=== PATIENT | male | born 1940 | race Caucasian/White ===

== ENCOUNTER 2025-07-03 18:01 | Inpatient (IN) | payer OTHER, SELFPAY ==
[2025-07-02] VITALS (12 sets, daily range): BP systolic 131–193; BP diastolic 57–117; BMI 35.5
--- NOTE | 2025-07-02 18:34 | ED.CVA ---
History of Present Illness
General
Chief Complaint: CVA/TIA Symptoms
Source: patient and spouse
Exam Limitations: none
Time Seen by Provider: 07/02/25 18:24
Onset of Stroke Symptoms
Onset of symptoms known: No
Time pt last seen normal is known: No
History of Present Illness
History of Present Illness:
See MDM
Past History
Past History
ED Past Medical History: Arrthythmia, CVA and HTN
ED Past Surgical History: Cardiac
Social History
Tobacco: Non-smoker
Alcohol: None
Phy Exam
Physical Exam
Physical Exam:
See MDM
NIH Stroke Score
Level of Consciousness: 0 - Alert
LOC questions: 0-Answers both correctly
LOC Commands: 1-Performs one correctly
Best Gaze: 1-Partial gaze palsy
Visual Mcbride: 2=Full hemianopia
Facial palsy: 0=Normal, symmetrical
Motor - Right Arm: 0=No drift 10 seconds
Motor - Left Arm: 1=Drift < 10 seconds
Motor - Right Le-No drift 5 seconds
Motor - Left Le-No drift 5 seconds
Limb Ataxia: 0-Absent
Sensation: 1-Mild loss
Best Language: 0-No aphasia
Dysarthria: 0-Normal
Extinction and Inattention: 0-No abnormality
Total Score:: 6
Course
Orders/Labs/Results
Orders:
Orders
07/02/25 18:30
Electrocardiogram (*1) Urgent
Reason for Study: TIA/Stroke
EKG- Treatment ONCE
07/02/25 18:40
Complete Blood Count/With Diff Urgent
Comprehensive Metabolic Panel Urgent
PTT Urgent
Prothrombin Time Urgent
Troponin I Urgent
07/02/25 18:42
CT Head & Neck Angio W/wo IV Urgent
Comment:
Reason For Exam: ataxia, left gaze palsy
07/02/25 20:12
Aspirin Chewable [Low Strength Aspirin] 324 mg PO NOW STA
Clopidogrel Bisulfate [Plavix] 300 mg PO NOW STA
07/02/25 20:38
Clopidogrel Bisulfate [Plavix] 300 mg .ROUTE .STK-MED ONE
Abnormal Lab Results
07/02/25
18:40
RBC 4.61 L 10^6/uL
(4.70-6.10)
MCV 97.6 H fL
(80.0-94.0)
MCH 31.7 H pg
(27.0-31.0)
MCHC 32.4 L g/dL
(33.0-37.0)
MPV 11.3 H fL
(7.4-10.4)
Absolute Monos (auto) 0.7 H 10^3/uL
(0.1-0.6)
BUN 21 H mg/dl
(9-20)
Glucose 268 H mg/dl
(70-99)
07/02/25 18:40
07/02/25 18:40
Vital Signs
Initial and Last Documented VS:
Initial Vital Signs
Temp Pulse Resp
97.9 F 77 16
07/02/25 18:26 07/02/25 18:26 07/02/25 18:26
Last Documented Vital Signs
Temp Pulse Resp BP Pulse Ox
97.9 F 70 20 176/107 91
07/02/25 18:32 07/02/25 18:32 07/02/25 18:32 07/02/25 18:32 07/02/25 19:47
MDM/Problems Addressed
Differential Diagnosis Includes:
Note:
CHIEF COMPLAINT(S)
Weakness and visual disturbance.
HISTORY OF PRESENT ILLNESS
The patient is an 84-year-old male presenting with weakness and visual disturbances. The symptoms began on a Thursday, where the patient noticed difficulty walking straight and frequent bumping into objects. He also reports a bloodshot eye since the
same period, described by an levi maker as a bruise of the eye, which is gradually clearing. The patient describes his current visual difficulties as lakes[place] to seeing through a 'slide show,' noticing quick movements with his sight. There has been
no significant headache accompanying these symptoms. He has a history of a stroke in September of the previous year but had no lasting weakness from it. The patient denies any use of blood thinners aside from aspirin. He has reported generalized
unsteadiness since his past stroke, though it improved with physical therapy. The recent exacerbation of unsteadiness has been particularly notable over the past few days.
On arrival to the emergency department, his spouse was at bedside as well. His spouse believes that symptoms occurred a few hours prior to arrival. Patient gives a conflicting story that it has occurred earlier in the morning. I had a long
discussion with patient and spouse indicating that giving TNK out of the window could result in intracranial hemorrhage. Both patient and spouse really cannot give a specific timing for the onset of symptoms. Because of the inability to
appropriately timestamp the onset of symptoms, patient is not a great TNK candidate. Both patient and spouse acknowledge and agree
ADDITIONAL HISTORY OBTAINED FROM SOURCES OTHER THAN THE PATIENT
Per EMS services, they did not provide any further intervention or noted any significant decline in the patients condition upon transportation.
CHRONIC MEDICAL CONDITIONS SIGNIFICANTLY AFFECTING CARE
The patient has a history of a stroke in the last year (September).
MEDICATIONS
Aspirin
REVIEW OF SYSTEMS
- Neurological: The patient reports weakness in the legs and unsteadiness when walking. He denies any recent headaches.
- Vision: Reports bloodshot eyes and visual disturbances, described as seeing a 'slide show.'
PHYSICAL EXAM
General: Alert, no acute distress.
Skin: Warm, dry.
Head: Normocephalic, atraumatic
Neck: Appears supple, trachea midline.
Eyes, Ears, Nose, Mouth, and Throat: Oral mucosa moist.
Cardiovascular: No signs of cyanosis. Regular rate and rhythm
Respiratory: Respirations are non-labored.
Abdomen: Non-distended
Musculoskeletal: No deformities
Neurological: Gaze palsy noted to left, left visual field deficit bilaterally. Drift noted to left arm. Sensory deficit noted to left arm
Psychiatric: Cooperative, appropriate mood and affect.
PROBLEM LIST
Acute:
- Visual disturbances
- Generalized weakness and unsteadiness
Chronic:
- History of stroke (September last year)
PLAN
- Initiate an IV line.
- Conduct a computed tomography (CT) scan of the head.
- Consider inpatient observation overnight for further evaluation.
DIFFERENTIAL DIAGNOSIS
The Differential Diagnosis includes, in no particular order and is not limited to:
1. Stroke or transient ischemic attack
2. Vestibular dysfunction
3. Ocular trauma or vitreous hemorrhage
4. Migraine with aura
5. Hypertensive retinopathy
6. Diabetic retinopathy
7. Inner ear infection
8. Brain tumor
9. Medication side effects
10. Hypotension or a cardiac event
My independent EKG interpretation is:
- Time of EKG not specified
- Rhythm: Sinus rhythm
- Heart rate: 64 beats per minute
- Notable findings: Frequent PVCs
- Kincaid: Left axis
- Bundle branch: Right bundle branch block
- ST segment: No ST elevation
- Other intervals (e.g., FL interval, QRS duration, QT interval) not specified
SUMMARY OF ENCOUNTER
The patient, an 84-year-old male with a history of stroke, presented to the emergency department with weakness and visual disturbances. During the evaluation, a CT angiogram of the head and neck was performed to assess for potential stroke-related
changes. The angiogram revealed no severe stenosis or clear evidence of thrombosis. Despite these results, due to the concerning nature of the patients symptoms which are suggestive of a potential stroke, the decision was made to restart aspirin and
clopidogrel (Plavix). Given the persistence of symptoms, the patient will be admitted to the hospital service for further workup and evaluation.
DISPOSITION
Admit
ASSESSMENT
The patient presents with visual disturbances and generalized weakness suggestive of a potential cerebrovascular event, despite unremarkable findings on the CT angiogram. Further evaluation in an inpatient setting is warranted to assess and manage
these symptoms effectively.
PLAN
- Restart aspirin and initiate clopidogrel (Plavix).
- Admit to hospital for further workup and observation.
INDEPENDENT REVIEW OF LABS AND INTERPRETATION OF TESTS
My independent CT angiogram of the head and neck shows no severe stenosis or obvious thrombosis.
MANAGEMENT OF THE PATIENTS CARE WAS DISCUSSED WITH
Case discussed with the radiologist.
MEDICATION RECONCILIATION
1. Aspirin resumed.
2. Clopidogrel (Plavix) initiated.
MEDICAL DECISION MAKING
1. Number and Complexity of Problems Addressed:
- Chronic conditions affecting care: History of stroke.
- Differential Diagnosis: Stroke or transient ischemic attack, Vestibular dysfunction, Ocular trauma or vitreous hemorrhage, Migraine with aura, Hypertensive retinopathy, Diabetic retinopathy, Inner ear infection, Brain tumor, Medication side
effects, Hypotension or a cardiac event.
2. Data:
Category 1
- My independent review of the CT angiogram shows no severe stenosis or obvious thrombosis.
Category 3
- Discussion of management with other physician, healthcare provider, other source: Radiologist
DIAGNOSIS
- Visual disturbances, unspecified (H53.9)
- Generalized weakness, unspecified (R53.1)
- History of ischemic stroke without residual deficits (Z86.73)
*Pulse Oximetry
SaO2: 98
Oxygen Mode of Delivery: Room air
Patient hypoxic: no
*Critical Care Note
Total Time (30-74mins, 75-104mins- exclusive of procedures): Not Applicable
ED Attending Note
-
Portions of this chart may have been created with voice recognition software.� Occasional wrong word or��sound alike� substitutions may have occurred due to the inherent limitations of voice recognition software.
Discharge Plan
Departure
Patient Disposition: Admit
Date of Disposition: 07/02/25
Time of Disposition: 20:17
Admit to: Telemetry
Presentation/result/management discussed w/ accepting MD/DO: Hospitalist
Discharge Problem:
Acute CVA (cerebrovascular accident)
Prescriptions:
No Action
ACTOS
30 mg PO DAILY
aspirin 325 MG tablet
325 mg PO DAILY
atenolol 100 MG tablet
100 mg PO
docusate sodium 100 MG capsule
100 mg PO TID
azelastine 137 MCG/SPRAY aerosol,spray
2 spray intranasal DAILY
fluticasone propionate 16 GRAM spray,suspension
2 spray intranasal DAILY
docosahexaenoic acid-epa 1 CAP capsule
2 cap PO DAILY
PREVACID
30 mg PO DAILY
Tylenol
2 cap PO DAILY
Vytorin 10-40 mg Tablet
1 tab PO DAILY
Referrals:
UNKNOWN - PT NOT,INTERVIEWE [Family Provider]
Interventions
Interventions:
*Risk Screen - Suicide Last Done: 07/02/25 19:00
*General Assessment Last Done: 07/02/25 19:00
*Neglect/Abuse Screening Last Done: 07/02/25 19:00
ED- Cardiac Assessment Last Done: 07/02/25 18:39
ED- Neurological Assessment Last Done: 07/02/25 18:33
ED- Pulmonary Assessment Last Done: 07/02/25 18:39
ED Swallowing Screen Last Done: 07/02/25 20:41
Discharge Date and Time
Print Language: [place]
[2025-07-02 18:48] LABS: Hematocrit 45.0 % (39.0-52.0); Hemoglobin 14.6 g/dL (13.0-18.0); Mean Corp Hgb Conc. 32.4 g/dL (33.0-37.0); Mean Corpuscular Volume 97.6 fL (80.0-94.0); Nucleated Red Blood Cells % 0 % (-); Platelet Count 177 10^3/uL (130-400); Red Cell Dist. Width 12.4 % (11.5-14.5)
[2025-07-02 18:57] LABS: INR 1.04; PT 13.9 Sec (11.4-14.6)
[2025-07-02 18:58] LABS: APTT 30.7 Sec (23.4-35.0)
[2025-07-02 19:13] LABS: ALT (SGPT) 32 U/L (0-50); AST (SGOT) 26 U/L (17-59); Albumin 4.3 g/dl (3.5-5.0); Alkaline Phosphatase 69 U/L (38-126); Blood Urea Nitrogen 21 mg/dl (9-20); Calcium 9.6 mg/dl (8.4-10.2); Carbon Dioxide 28 mmol/L (22-30); Chloride 106 mmol/L (98-107); Estimated Creatinine Clearance 64 ml/min; Glucose 268 mg/dl (70-99); Potassium 4.4 mmol/L (3.5-5.1); Sodium 139 mmol/L (135-145); Total Protein 7.0 g/dl (6.3-8.2); eGFR > 60.00
[2025-07-02 19:15] LABS: Troponin I < 0.012 ng/ml
[2025-07-02] MEDS: LOW STRENGTH ASPIRIN 324 MG PO (20:42)
[2025-07-02] MEDS: PLAVIX 300 MG PO (20:42)
--- NOTE | 2025-07-02 21:27 | HPS.HSE ---
Family Physician
-
Family Physician: Jeremiah Lee
Chief Complaint
-
left sided weakness
History of Present Illness
84-year-old male past medical history of prior CVA last year, CAD, diabetes, hypercholesteremia, GERD, hypertension, BPH, arthritis, presenting with sudden onset of disequilibrium and bumping into things that started today. Patient felt unlike
himself. Patient himself vague about when the symptoms started however states that he she last saw him normal at around 4 to 4:30 PM today. Patient had a headache but denied any blurry vision. He states that he had kaleidoscope like images
and visual field at the time. He denies any numbness or tingling or weakness. No slurred speech or difficulty speaking or confusion.
3 days ago he noticed that his left eye was red. He denies any eye pain or blurry vision. He called his geochemist who told him that this was subconjunctival hemorrhage and nothing to be worried about.
Patient had a stroke 1 year ago diagnosed at [facility] and he had similar symptoms of disequilibrium and left-sided weakness. He had neglect at that time and some residual vision issues and left-sided neglect however his symptoms today are
new.
He does not smoke. He drinks alcohol occasionally.
Medical History
Past Medical History
Past Medical History: Reports Other (prior CVA last year, CAD, diabetes, hypercholesteremia, GERD, hypertension, BPH, arthritis,)
Past Surgical History: Reports None
Social History
Tobacco: Non-smoker
Alcohol: Occasional
Drug: None
Family History
Family History: Not pertinent
Allergies / Home Medications
Allergies reflects when Allergies were last updated in [facility].
Home Medications with original date entered in [facility]
Allergy/Medication List:
Allergies
Allergy/AdvReac Type Severity Reaction Status Date / Time
HIEU Inhibitors (Hieu Allergy cough Verified 07/02/25 18:30
Inhibitors)
metformin Allergy gas Verified 07/02/25 18:30
Home Medications
ACTOS 30 mg PO DAILY 12/20/10
PREVACID 30 mg PO DAILY 12/20/10
Tylenol 2 cap PO DAILY 12/20/10
Vytorin 10-40 mg Tablet 1 tab PO DAILY 12/20/10
aspirin 325 mg tablet 325 mg PO DAILY 12/20/10
atenolol 100 mg tablet 100 mg PO 12/20/10
azelastine 137 mcg (0.1 %) nasal spray 2 spray intranasal DAILY 12/20/10
docosahexaenoic acid (dha)-epa 120 mg-180 mg capsule 2 cap PO DAILY 12/20/10
docusate sodium 100 mg capsule 100 mg PO TID 12/20/10
fluticasone propionate 50 mcg/actuation nasal spray,suspension 2 spray intranasal DAILY 12/20/10
Review of Systems
-
Constitutional: Reports No Symptoms
EENT: Reports No Symptoms
Respiratory: Reports No Symptoms
Cardiac: Reports No Symptoms
Abdomen/GI: Reports No Symptoms
: Reports No Symptoms
Musculoskeletal: Reports No Symptoms
Skin: Reports No Symptoms
Neurological: Reports No Symptoms
Endocrine: Reports No Symptoms
Hematologic/Lymphatic: Reports No Symptoms
Psych: Reports No Symptoms
Physical Exam
Vital Signs
Vital Signs
Temp Pulse Resp BP Pulse Ox
97.9 F 70 20 176/107 91
07/02/25 18:32 07/02/25 18:32 07/02/25 18:32 07/02/25 18:32 07/02/25 19:47
Physical Exam
General: Well Developed, Well Nourished and No Apparent Distress
HEENT: NormoCephalic, Moist mucous membranes and Atraumatic
Respiratory: Clear
Cardiac: S1/S2 and Regular Rhythm; No Murmur or Rub
GI: Soft, Non Tender, Non Distended and Normal Bowel Sounds; No Organomegaly
Rectal: Deferred by Provider
Musculoskeletal: No Clubbing, No Cyanosis and No Edema
Skin: No Rash
Neuro: Nonfocal/grossly intact and Other (Left sided drift upper and lower extremity, left sided gaze palsy, numbness of left side, left gaze palsy )
Laboratory Results
-
07/02/25 18:40
07/02/25 18:40
Laboratory Results
PT 13.9 Sec (11.4-14.6) 07/02/25 18:40
INR 1.04 07/02/25 18:40
APTT 30.7 Sec (23.4-35.0) 07/02/25 18:40
Total Bilirubin 0.5 mg/dl (0.2-1.3) 07/02/25 18:40
AST 26 U/L (17-59) 07/02/25 18:40
ALT 32 U/L (0-50) 07/02/25 18:40
Alkaline Phosphatase 69 U/L (38-126) 07/02/25 18:40
Troponin I < 0.012 ng/ml 07/02/25 18:40
Data Reviewed
-
Lab Data: Labs Reviewed by me
Old Records: Reviewed
Impression/Plan
-
IMPRESSION:
PLAN:
# Likely CVA
# Prior CVA 1 year ago
-NIH of 6 noted in the emergency room, patient with significant left-sided weakness and numbness, left-sided gaze preference at this time
- CTA head and neck shows no acute intracranial process, no hemorrhage, encephalomalacia within the right temporoparietal region, small hypodensity within the superior left parietal lobe favored to represent chronic infarction,
-Aspirin and Plavix were given by ER
-Check CT head with perfusion given profound extent of symptoms
- Check MRI brain
- Check A1c and lipid panel
- Neurology consulted
# Subconjunctival hemorrhage of left eye
- Outpatient follow-up with ophthalmology
CAD
Essential hypertension
-continue atenolol
Type 2 diabetes
Hypercholesteremia
GERD
BPH
Arthritis
Full code
DVT prophylaxis SCDs
Regular diet
[2025-07-02] MEDS: ZOFRAN 4 MG IV (21:52)
--- NOTE | 2025-07-02 23:48 | W.PN.UPDATE ---
Update Note
Progress Note Update
Neurology looked at the CT perfusion scan and determined that the penumbra was not large enough to warrant benefit with TNK versus risk of bleeding. Permissive hypertension. Aspirin and Plavix to be continued.
[2025-07-03] VITALS (10 sets, daily range): BP systolic 112–160; BP diastolic 59–70; PULSE 81–82; O2SAT 94–95; BMI 31.9
--- NOTE | 2025-07-03 | TRANSFER ---
Pt arrived from ED by stretcher, was a pullover. An NIH was performed. VSS. Callbell within reach.
[2025-07-03 00:38] LABS: Glucose - Point of Care 271 mg/dl (70-99)
[2025-07-03] MEDS: TYLENOL 1000 MG PO (04:18)
--- NOTE | 2025-07-03 07:10 | W.PN.HOSP.TC ---
Today's Communication/Plan
-
See plan
Assessment / Plan
Assessment / Plan
Physical Exam
General: Well Developed, Well Nourished and No Apparent Distress
HEENT: NormoCephalic, Moist mucous membranes and Atraumatic
Respiratory: Clear
Cardiac: S1/S2 and Regular Rhythm; No Murmur or Rub
GI: Soft, Non Tender, Non Distended and Normal Bowel Sounds; No Organomegaly
Rectal: Deferred by Provider
Musculoskeletal: No Clubbing, No Cyanosis and No Edema
Skin: No Rash
Neuro: Nonfocal/grossly intact and Other (Left sided drift upper and lower extremity, left sided gaze palsy, numbness of left side, left gaze palsy )
Assessment/Plan
84-year-old male past medical history of prior CVA last year, CAD, diabetes, hypercholesteremia, GERD, hypertension, BPH, arthritis, presenting with sudden onset of disequilibrium and bumping into things that started today. Patient felt unlike
himself. Patient himself vague about when the symptoms started however states that he she last saw him normal at around 4 to 4:30 PM today. Patient had a headache but denied any blurry vision. He states that he had kaleidoscope like images
and visual field at the time. He denies any numbness or tingling or weakness. No slurred speech or difficulty speaking or confusion.
3 days ago he noticed that his left eye was red. He denies any eye pain or blurry vision. He called his credit collections clerk who told him that this was subconjunctival hemorrhage and nothing to be worried about.
Patient had a stroke 1 year ago diagnosed at [facility] and he had similar symptoms of disequilibrium and left-sided weakness. He had neglect at that time and some residual vision issues and left-sided neglect however his symptoms today are
new.
He does not smoke. He drinks alcohol occasionally.
# Likely CVA
# Prior CVA 1 year ago
- NIH of 6 noted in the emergency room, patient with significant left-sided weakness and numbness, left-sided gaze preference at this time
- CTA head and neck shows no acute intracranial process, no hemorrhage, encephalomalacia within the right temporoparietal region, small hypodensity within the superior left parietal lobe favored to represent chronic infarction,
- Aspirin and Plavix
- Statin
- CTA Head and Neck & CT Brain: no acute process, encephalomalacia within the right temporoparietal region, small hypodensity within the superior left parietal lobe favored to represent a chronic infarction, no significant arterial
stenosis, no aneurysm, mild atherosclerotic plaque of the carotid bifurcations with resultant less than 30% stenosis by NASA criteria.
- HbA1c 7.6%
- Lipid panel noted
- Neurology consulted
- I spoke on 07/03/25 with neurology who said patient has a reasonably large territory stroke, appears embolic, no need for MRI Brain
- Consulted cardiology for interrogation of patient's implantable loop recorder
- Monitor telemetry for A-Fib
- Echo
#Subconjunctival hemorrhage of left eye
- Outpatient follow-up with ophthalmology
#Incidentally noted 3 mm solid nodule within the posterior right upper lobe which is nonspecific. A follow-up CT chest in 12 months may be considered. The patient is considered high risk.
-On CT Imaging
#CAD with history of CABG
-Continue Aspirin and Statin
#Essential hypertension
-continue atenolol
#Type 2 Diabetes Mellitus
-Diabetic Duet
-Continue SGLT2i
#Hypercholesteremia
-Continue statin
#GERD
#BPH
#Arthritis
Code Status: Full code
DVT prophylaxis: SCDs. Lovenox.
Anticipated Discharge: 24 - 48 hours
Subjective/Interval History
-
Date of Service: July 03, 2025
Patient was seen and examined. Both patient's family and patient himself reported that his presenting symptoms have resolved.
Objective Data
-
Labs:
Laboratory Results
07/02/25 07/03/25
18:40 06:00
WBC Pending
Hgb Pending
Hct Pending
Plt Count Pending
Sodium 139 Pending
Potassium 4.4 Pending
Chloride 106 Pending
Carbon Dioxide 28 Pending
BUN 21 H Pending
Creatinine 1.0 Pending
Glucose 268 H Pending
Calcium 9.6 Pending
Total Bilirubin 0.5 Pending
AST 26 Pending
ALT 32 Pending
Alkaline Phosphatase 69 Pending
Vital Signs:
Vital Signs
Temp Pulse Resp BP Pulse Ox
98.6 F 82 20 140/70 97
07/03/25 03:59 07/03/25 03:59 07/03/25 03:59 07/03/25 03:59 07/03/25 03:59
I&O
07/02/25 07/03/25 07/04/25
06:59 06:59 06:59
Intake Total 480 / 480
Output Total 675 / 675
Balance -195 / -195
[2025-07-03 08:00] LABS: Glucose - Point of Care 151 mg/dl (70-99)
[2025-07-03 08:16] LABS: Hematocrit 42.4 % (39.0-52.0); Hemoglobin 13.9 g/dL (13.0-18.0); Mean Corp Hgb Conc. 32.8 g/dL (33.0-37.0); Mean Corpuscular Volume 97.7 fL (80.0-94.0); Nucleated Red Blood Cells % 0 % (-); Platelet Count 172 10^3/uL (130-400); Red Cell Dist. Width 12.3 % (11.5-14.5)
[2025-07-03 08:41] LABS: ALT (SGPT) 32 U/L (0-50); AST (SGOT) 26 U/L (17-59); Albumin 4.0 g/dl (3.5-5.0); Alkaline Phosphatase 69 U/L (38-126); Blood Urea Nitrogen 22 mg/dl (9-20); Calcium 9.3 mg/dl (8.4-10.2); Carbon Dioxide 27 mmol/L (22-30); Chloride 107 mmol/L (98-107); Estimated Creatinine Clearance 67 ml/min; Glucose 184 mg/dl (70-99); HDL Cholesterol 70 mg/dl; LDL Cholesterol, Calculated 66 mg/dl; Potassium 4.4 mmol/L (3.5-5.1); Sodium 140 mmol/L (135-145); Total Protein 6.6 g/dl (6.3-8.2); Very Low Density Lipoprotein 12 mg/dl (0-30); eGFR > 60.00
[2025-07-03] MEDS: NOVOLOG FLEXPEN-LOW RESISTANCE 1 UNITS SC ×2 (08:55→17:58)
[2025-07-03] MEDS: LOW STRENGTH ASPIRIN 81 MG PO (08:55)
[2025-07-03] MEDS: PLAVIX 75 MG PO (08:55)
[2025-07-03 09:03] LABS: Glycohemoglobin (HgbA1c) 7.6 % (4.0-5.6)
--- NOTE | 2025-07-03 11:38 | CON.CAR ---
Addendum entered and electronically signed by Bautista Logan MD 07/03/25 18:50:
I saw and evaluated the patient, and I provided the substantive portion of the medical decision making.
I reviewed and agree with the note by TAVO Almaguer and it accurately reflects our care.
I personally performed the medical decision making of the this encounter and my assessment and plan is below:
Loop interrogated: Biotronik => NO AFIB.
No indication for Eliquis from a cardiac rhythm perspective.
From a general stroke prevention I reviewed that more aggressive blood pressure control after the acute phase of stroke can be beneficial and it may be yuen and after 21 days of DAPT maybe use Plavix over ASA. Goal LDL of less than 55 is
appropriate.
Original Note:
Consultation
Consultation Request
Date/Time Consultation Requested: 07/03/25 1059
Date/Time Consultation Performed: 07/03/25 1130
Requesting Provider: Dr. Posadas
Performing Provider: Sharyn VO for Dr. Logan
Reason for Consultation: Stroke, has ILR
Medical History
-
Chief Complaint: visual disturbance/disequilibrium
History of Present Illness:
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
previous stroke yesterday, which included about 5 hours of visual disturbance and disequilibrium. CT perfusion showed cerebral blood flow decrease and Tmax prolongation are in the region of encephalomalacia involving the right posterior temporal,
occipital, and inferior parietal lobes. Patient has an implantable loop recorder and we are consulted for assessment of this. He feels back to normal at the time of my assessment. and daughter at bedside.
Past Medical History
Past Medical History: CAD, CVA, HTN, Hypercholesterolemia, NIDDM, Valvular Disease and Other (as above)
Social History
Tobacco: Former Smoker (quit 45-50 years ago)
Personal:
Living: With Family
Family History
Family History: Reviewed & Not Pertinent
Allergies / Home Medications
Allergy/AdvReac Type Severity Reaction Status Date / Time
HIEU Inhibitors (Hieu Allergy cough Verified 07/02/25 18:30
Inhibitors)
metformin Allergy gas Verified 07/02/25 18:30
med rec not yet done, but cardiac medications include:
atorvastatin 80 mg PO daily
losartan 50 mg daily
metoprolol 25 mg PO BID
aspirin 81 mg PO daily
Review of Systems
-
History Source: Patient
All other systems: Negative unless noted
Neurological: Other (visual disturbance/disequilibrium)
Physical Exam
Vital Signs
Temp Pulse Resp BP Pulse Ox
99.6 F 80 18 123/63 94
07/03/25 07:00 07/03/25 07:00 07/03/25 07:00 07/03/25 07:00 07/03/25 07:00
Lab Results
07/03/25 07:25
07/03/25 07:25
Troponin I < 0.012 ng/ml 07/02/25 18:40
Physical Exam
General: Well Developed, Well Nourished and No Apparent Distress
HEENT: Normocephalic and Anicteric
Respiratory: Clear and Non Labored Respirations
Cardiac: Regular Rhythm and Murmur (II/ systolic murmur)
Musculoskeletal: No Edema
Skin: Warm and Dry
Neuro: AO x 3
Psych: Calm
Impression / Plan
-
Stroke:
-this diagnosis is threat to bodily function
-neurology on the case
-patient is on ASA, now Plavix- I will resume statin as it is not ordered
-he has an implantable loop recorder. interrogate device- I have contacted [employer] for interrogation- they will send rep out. Patient tells me that no AFIB has been seen so far on device interrogation, and his non destructive evaluation manager has not felt he needed
OAC. He reports had brief AFIB after his AVR/CABG which was about 10 years ago, but that is his only known AFIB history. Will assess for AFIB on monitor. Tele shows no AFIB so far. No objection to OAC if neuro recommends.
-obtain echo
CAD with hx CABG:
-continue ASA
-resume statin and BB from home meds
Hx Bio AVR:
-on ASA
HTN:
-on ARB and BB as OP
-monitor BP's
DM:
-management per primary
Data Reviewed
-
EKG: Tracing Personally Visualized and interpreted (SR with PVC's, RBBB)
CT Scan: Report Reviewed by me (Brain CT -No acute intracranial process. Specifically, no evidence of acute hemorrhage. Encephalomalacia within the right temporoparietal region. There is a small hypodensity within the superior left parietal lobe
favored to represent a chronic infarction.)
Medical Tests (Nuc Med, Echo etc): Other (echo ordered)
Labs: Labs Reviewed by me
[2025-07-03 11:51] LABS: Glucose - Point of Care 215 mg/dl (70-99)
--- NOTE | 2025-07-03 12:36 | CM ---
Patient seen at bedside with & daughter Susanne
IA completed
Per hospitalist - LOC to inpatient-IMM explained & signed. in chart
CM consult completed. Advanced Directives information given to patient/
Lives in 2 story home, 2 KAREN, 1st floor bedroom/bathroom
PLOF: independent with cane
DME: Cane, walker, shower chair
Daughter is a PT & works for [employer]
Patient had [facility] in past, had been at [facility] in past in [place]
PT/OT rec Acute Rehab
Daughter would like to wait to place referral at this time, CM to follow up
PCP: Jeremiah Lee
Pharmacy: [facility], [address], [place]
PLAN: PT rec acute rehab, CM to follow up with referral to be entered
[2025-07-03] MEDS: NOVOLOG FLEXPEN-LOW RESISTANCE 2 UNITS SC (12:55)
[2025-07-03] MEDS: PEPCID 20 MG PO (13:40)
[2025-07-03] MEDS: TYLENOL 650 MG PO ×2 (15:38→20:57)
[2025-07-03 16:45] LABS: Glucose - Point of Care 185 mg/dl (70-99)
[2025-07-03] MEDS: LOVENOX 40 MG SC (18:29)
--- NOTE | 2025-07-03 19:49 | CON.NEURO ---
Neuro Assessment/Plan
Assessment
head CT imgs rev'd, right temporoparietal encephalomalacia
CTA no LVO
CT perfusion core 14 cc, penumbra 6 cc near his prior stroke as read by prashanth RUDD, and my review of imaging agrees with this assessment.
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 began with simple visual hallucinations then profound left sided weakness and neglect. the gaze deviation to the left (away from lesion) can only be seen with a
seizure, because a stroke or post ictal would cause gaze deviation TOWARD the lesion.
as I think this is a seizure, I'm not convinced that the penumbra was ever real.
symptoms were profound and lasted many hours, and I believe he is at >50% risk for further seizures
Plan
load Keppra 2000
start Keppra 500 BID
check EEG
Consultation
Order
Date of Consultation: 07/03/25
Requesting Provider: Viky
Reason for Consult: Stroke
Subjective/Objective
Subjective Data
Date of Service: July 03, 2025
from h&p:
84-year-old male past medical history of prior CVA last year, CAD, diabetes, hypercholesteremia, GERD, hypertension, BPH, arthritis, presenting with sudden onset of disequilibrium and bumping into things that started today. Patient felt unlike
himself. Patient himself vague about when the symptoms started however states that he she last saw him normal at around 4 to 4:30 PM today. Patient had a headache but denied any blurry vision. He states that he had kaleidoscope like images
and visual field at the time. He denies any numbness or tingling or weakness. No slurred speech or difficulty speaking or confusion.
3 days ago he noticed that his left eye was red. He denies any eye pain or blurry vision. He called his retort firer who told him that this was subconjunctival hemorrhage and nothing to be worried about.
Patient had a stroke 1 year ago diagnosed at [facility] and he had similar symptoms of disequilibrium and left-sided weakness. He had neglect at that time and some residual vision issues and left-sided neglect however his symptoms today are
new.
He does not smoke. He drinks alcohol occasionally.
I spoke to Dr Salmon over TT last night, with dense left hemiparesis, left sided neglect, and left gaze deviation, my concern was seizure because gaze deviation away from the side of the lesion, however he was very concerned for stroke. we decided
to obtain a CT perfusion scan, which showed a a 14 cc core infarct and 6 cc penumbra near his prior right temporoparietal stroke. I recommended no TNK because penumbra:core <1.8
I spoke to patient and family this morning and he is now back to baseline, and he is denying that he had left sided weakness yesterday (because of the neglect)
Objective Data
Vital Signs
Temp Pulse Resp BP Pulse Ox
36.9 C 65 18 139/66 97
07/03/25 15:00 07/03/25 15:00 07/03/25 15:00 07/03/25 15:00 07/03/25 15:00
Lab Results
07/03/25 07:25
07/03/25 07:25
PT 13.9 Sec (11.4-14.6) 07/02/25 18:40
INR 1.04 07/02/25 18:40
APTT 30.7 Sec (23.4-35.0) 07/02/25 18:40
Sodium 140 mmol/L (135-145) 07/03/25 07:25
Potassium 4.4 mmol/L (3.5-5.1) 07/03/25 07:25
BUN 22 mg/dl (9-20) H 07/03/25 07:25
Glucose 184 mg/dl (70-99) H 07/03/25 07:25
Calcium 9.3 mg/dl (8.4-10.2) 07/03/25 07:25
LDL Cholesterol, Calc 66 mg/dl 07/03/25 07:25
Patient Allergies
HIEU Inhibitors (Hieu Inhibitors) Allergy (Verified 07/02/25 18:30)
cough
metformin Allergy (Verified 07/02/25 18:30)
gas
Physical Exam
-
AAOx3 speech clear, language intact
L superior homo quadrantanopsia
left nasolabial flattening
full strength b/l UE/LE
no neglect
Medications
-
Active Medications
Generic Name Dose Route Start Last Admin
Trade Name Freq PRN Reason Stop Dose Admin
Acetaminophen 650 mg 07/03/25 04:00 07/03/25 15:38
Acetaminophen 325 Mg Tablet PO 07/31/25 03:59 650 mg
Q4HPRN PRN Administration
mild pain/VALENCIA/temp>100.5
Aspirin 81 mg 07/03/25 08:00 07/03/25 08:55
Aspirin 81 Mg Chewable Tablet PO 07/31/25 07:59 81 mg
DAILY ROXANN Administration
Atorvastatin Calcium 80 mg 07/03/25 22:00
Atorvastatin (Lipitor) 80 Mg Tablet PO 07/31/25 21:59
HS ROXANN
Clopidogrel Bisulfate 75 mg 07/03/25 08:00 07/03/25 08:55
Clopidogrel 75 Mg Tablet PO 07/31/25 07:59 75 mg
DAILY ROXANN Administration
Dapagliflozin 10 mg 07/04/25 08:00
Dapagliflozin (Farxiga) 10 Mg Tablet PO 08/01/25 07:59
DAILY ROXANN
Dextrose 12.5 grams 07/02/25 23:50
Dextrose 50% (0.5 Grams/Ml) 50 Ml Syringe IV 07/30/25 23:49
[id number] PRN
hypoglycemia
Protocol
Docusate Sodium 100 mg 07/04/25 08:00
Docusate Sodium 100 Mg Capsule PO 08/01/25 07:59
DAILY ROXANN
Docusate Sodium 200 mg 07/03/25 22:00
Docusate Sodium 100 Mg Capsule PO 07/31/25 21:59
HS ROXANN
Enoxaparin Sodium 40 mg 07/03/25 19:00 07/03/25 18:29
Enoxaparin Sodium 40 Mg/0.4 Ml Syringe SC 07/31/25 18:59 40 mg
QPM ROXANN Administration
Finasteride 5 mg 07/03/25 22:00
Finasteride 5 Mg Tablet PO 07/31/25 21:59
HS ROXANN
Glucagon 1 mg 07/02/25 23:50
Glucagon 1 Mg Vial IM 07/30/25 23:49
PRN PRN
hypoglycemia
Protocol
Insulin Aspart 0 units 07/03/25 07:30 07/03/25 17:58
Insulin Aspart Low Resistance 300 Units/3 Ml Pen.Injctr SC 07/31/25 07:29 1 units
AC ROXANN Administration
Protocol
Metoprolol Tartrate 25 mg 07/03/25 20:00
Metoprolol 25 Mg Regular Release Tablet PO 07/31/25 19:59
BID ROXANN
Multivitamins Therapeutic 1 tablet 07/04/25 08:00
Multivitamin Tablet PO 08/01/25 07:59
DAILY ROXANN
Pantoprazole Sodium 20 mg 07/04/25 08:00
Pantoprazole 20 Mg Delayed Release Tablet PO 08/01/25 07:59
DAILY ROXANN
Home Medications
�Medication �Instructions �Recorded
docusate sodium 100 mg capsule 100 mg PO DAILY 12/20/10
lansoprazole 15 mg capsule,delayed 15 mg PO DAILY 12/20/10
release
aspirin 81 mg tablet,delayed 81 mg PO DAILY 07/03/25
release
atorvastatin 80 mg tablet (Lipitor) 80 mg PO HS 07/03/25
docusate sodium 100 mg capsule 200 mg PO HS 07/03/25
(Colace)
empagliflozin 10 mg tablet 10 mg PO DAILY 07/03/25
(Jardiance)
finasteride 5 mg tablet 5 mg PO HS 07/03/25
fluticasone propionate 50 1 spray intranasal HS 07/03/25
mcg/actuation nasal
spray,suspension
losartan 50 mg tablet 50 mg PO DAILY 07/03/25
metoprolol tartrate 50 mg tablet 25 mg PO BID 07/03/25
sitagliptin phosphate 100 mg 100 mg PO DAILY 07/03/25
tablet (Januvia)
therapeutic multivitamin 1 tab PO DAILY 07/03/25
[2025-07-03] MEDS: LOPRESSOR 25 MG PO (20:31)
[2025-07-03 21:26] LABS: Glucose - Point of Care 200 mg/dl (70-99)
[2025-07-03] MEDS: KEPPRA 2000 MG IV (22:21)
[2025-07-03] MEDS: PROSCAR 5 MG PO (22:22)
[2025-07-03] MEDS: COLACE 200 MG PO (22:22)
[2025-07-03] MEDS: LIPITOR 80 MG PO (22:22)
--- NOTE | 2025-07-04 07:19 | W.PN.HOSP.TC ---
Addendum entered and electronically signed by Ramon Posadas MD 07/06/25 20:07:
Possible Acute Delirium due to Keppra
Original Note:
Today's Communication/Plan
-
Discharge today if okay results are acceptable
Assessment / Plan
Assessment / Plan
Physical Exam
General: Well Developed, Well Nourished and No Apparent Distress
HEENT: NormoCephalic, Moist mucous membranes and Atraumatic
Respiratory: Clear
Cardiac: S1/S2 and Regular Rhythm; No Murmur or Rub
GI: Soft, Non Tender, Non Distended and Normal Bowel Sounds; No Organomegaly
Rectal: Deferred by Provider
Musculoskeletal: No Clubbing, No Cyanosis and No Edema
Skin: No Rash
Neuro: AAOx3. Speech clear. Cranial Nerves 2 through 12 okay except visual cummings, mild left nasolabial flattening, 5/5 strength in bilateral upper and lower extremities.
Assessment/Plan
84-year-old male past medical history of prior CVA last year, CAD, diabetes, hypercholesteremia, GERD, hypertension, BPH, arthritis, presenting with sudden onset of disequilibrium and bumping into things that started today. Patient felt unlike
himself. Patient himself vague about when the symptoms started however states that he she last saw him normal at around 4 to 4:30 PM today. Patient had a headache but denied any blurry vision. He states that he had kaleidoscope like images
and visual field at the time. He denies any numbness or tingling or weakness. No slurred speech or difficulty speaking or confusion. 3 days prior to presentation, he noticed that his left eye was red. He denies any eye pain or blurry vision. He
called his weld inspector who told him that this was subconjunctival hemorrhage and nothing to be worried about. Patient had a stroke 1 year ago diagnosed at [facility] and he had similar symptoms of disequilibrium and left-sided weakness.
He had neglect at that time and some residual vision issues and left-sided neglect however his symptoms today are new. Patient does not smoke. He drinks alcohol occasionally.
# Simple Partial Seizures
# Prior CVA 1 year ago
- NIH of 6 noted in the emergency room, patient with significant left-sided weakness and numbness, left-sided gaze preference at this time
- CTA head and neck shows no acute intracranial process, no hemorrhage, encephalomalacia within the right temporoparietal region, small hypodensity within the superior left parietal lobe favored to represent chronic infarction,
- Aspirin. No indication for Plavix (I confirmed this via [employer] communication today, with ammonia refrigeration worker Dr. Martin and neurologist Dr. Hahn)
- Statin
- CTA Head and Neck & CT Brain: no acute process, encephalomalacia within the right temporoparietal region, small hypodensity within the superior left parietal lobe favored to represent a chronic infarction, no significant arterial
stenosis, no aneurysm, mild atherosclerotic plaque of the carotid bifurcations with resultant less than 30% stenosis by NASA criteria.
- HbA1c 7.6%
- Lipid panel noted
- Neurology consulted
- Discussed with neurology who mentioned that patient's findings suggest more of seizure than stroke, patient sundowned overnight 07/03/25 to 07/04/25 after Keppra was started, better to do Zonisamide 300 mg daily on
discharge in case the sundowning was from Keppra
- Patient had a very bizarre episode when trying to eat lunch around 2 PM on 07/04/25, according to the daughter, patient 'forgot' how to eat the sandwich and couldn't see the sandwich -- the episode initially lasted about a
minute, and slowly got better over a period of 4-5 minutes -- I discussed this with neurology who said that this episode was a seizure (but not TIA) since symptoms did not last long enough -- could also be ideomotor apraxia --
recommendation to give 600 mg Zonisamide today, followed by 300 mg daily starting on 07/05/25 as per my communication with Dr. Hahn today
- Consulted cardiology for interrogation of patient's implantable loop recorder: no A-Fib on interrogation
- Monitor telemetry for A-Fib
- Echo needs to be checked as per Dr. Martin, before patient leaves -- echo result pending
- I discussed patient's case with nurse case manager, who also spoke to patient's daughters, and neurology, case management and patient's daughters are in agreement with patient being discharged home with
[facility] at [facility]. Neurologist also confirmed that patient does not have a qualifying diagnosis for inpatient rehab placement.
- Follow-up with neurology AGRICULTURAL EQUIPMENT SALESPERSON outpatient
#Subconjunctival hemorrhage of left eye
- Outpatient follow-up with ophthalmology
#Incidentally noted 3 mm solid nodule within the posterior right upper lobe which is nonspecific. A follow-up CT chest in 12 months may be considered. The patient is considered high risk.
-On CT Imaging
#CAD with history of CABG
-Continue Aspirin and Statin
#Essential hypertension
-continue atenolol
#Type 2 Diabetes Mellitus
-Diabetic Duet
-Continue SGLT2i
-Continue Sitagliptin on discharge
#Hypercholesteremia
-Continue statin
#GERD
#BPH
#Arthritis
Code Status: Full code
DVT prophylaxis: SCDs. Lovenox.
More than 30 minutes spent in discharge including
Final examination of the patient
Summarizing hospital stay
Instructions for continuing care to all relevant caregivers
Preparation of discharge records, prescriptions, and referral forms
Total time spent (in minutes): 37
Anticipated Discharge: Today
Subjective/Interval History
-
Date of Service: July 04, 2025
Patient was seen and examined. Overnight he was very restless, determined to have been , the restlessness resolved this morning.
Objective Data
-
Labs:
Laboratory Results
07/04/25
06:00
WBC Pending
Hgb Pending
Hct Pending
Plt Count Pending
Sodium Pending
Potassium Pending
Chloride Pending
Carbon Dioxide Pending
BUN Pending
Creatinine Pending
Glucose Pending
Calcium Pending
Total Bilirubin Pending
AST Pending
ALT Pending
Alkaline Phosphatase Pending
Vital Signs:
Vital Signs
Temp Pulse Resp BP Pulse Ox
98.2 F 63 18 131/63 94
07/03/25 23:00 07/03/25 23:00 07/03/25 23:00 07/03/25 23:00 07/03/25 23:00
I&O
07/03/25 07/04/25 07/05/25
06:59 06:59 06:59
Intake Total 480 / 480 740 / 740
Output Total 675 / 675 300 / 300
Balance -195 / -195 440 / 440
[2025-07-04 07:35] LABS: Glucose - Point of Care 152 mg/dl (70-99)
[2025-07-04] MEDS: KEPPRA 500 MG PO (07:54)
[2025-07-04] MEDS: FARXIGA 10 MG PO (07:55)
[2025-07-04] MEDS: LOPRESSOR 25 MG PO (07:55)
[2025-07-04] MEDS: COLACE 100 MG PO (07:55)
[2025-07-04] MEDS: PLAVIX 75 MG PO (07:56)
[2025-07-04] MEDS: PROTONIX 20 MG PO (07:56)
[2025-07-04] MEDS: LOW STRENGTH ASPIRIN 81 MG PO (07:56)
[2025-07-04] MEDS: THERAGRAN 1 TABLET PO (07:56)
[2025-07-04 08:09] VITALS: BP 116/74
--- NOTE | 2025-07-04 08:09 | W.PN.CD ---
Today's Communication / Plan
-
- No atrial fibrillation on loop recorder interrogation.
- Continue recommendations as per Neurology; Continue aspirin/Plavix.
- Echocardiogram ordered for today; can follow-up with primary Meteorological Observer.
- Cardiology will remain available on an as-needed basis.
Impression / Plan
-
Stroke:
- No atrial fibrillation on loop recorder interrogation.
- Continue recommendations as per Neurology; Continue aspirin/Plavix.
- Echocardiogram ordered for today; can follow-up with primary Meteorological Observer.
CAD with hx CABG:
- Denies any anginal symptoms; stable. Continue aspirin, atorvastatin, metoprolol tartrate.
Hx Bio AVR:
- on ASA
- Will obtain echocardiogram to establish baseline cardiac function.
HTN:
- Controlled.
- Continue current dose of metoprolol tartrate.
DM:
-management per primary
Physical Exam
Vital Signs/Labs
Vital Signs
Temp Pulse Resp BP Pulse Ox
98.2 F 64 18 116/74 94
07/03/25 23:00 07/04/25 07:55 07/03/25 23:00 07/04/25 07:55 07/03/25 23:00
07/03/25 07/04/25 07/05/25
06:59 06:59 06:59
Actual Weight 95.254 kg
PT 13.9 Sec (11.4-14.6) 07/02/25 18:40
INR 1.04 07/02/25 18:40
APTT 30.7 Sec (23.4-35.0) 07/02/25 18:40
Triglycerides 60 mg/dl (10-149) 07/03/25 07:25
LDL Cholesterol, Calc 66 mg/dl 07/03/25 07:25
VLDL Cholesterol, Calc 12 mg/dl (0-30) 07/03/25 07:25
HDL Cholesterol 70 mg/dl 07/03/25 07:25
LAB Results
07/02/25
18:40
Troponin I < 0.012
Physical Exam
Constitutional: No acute distress and Comfortable
EENT: Anicteric
Cardiovascular: Rhythm & rate is regular, Pedal edema is absent, Systolic murmur present (Soft 2/6) and S1S2 is normal
Respiratory: Respiratory effort normal and Lungs clear to auscul.
GI: Soft
Neuro/Psych: Alert
Other: Skin (Warm, dry, intact)
Data Reviewed
-
Date of Service: July 04, 2025
EKG: Tracing Personally Visualized and interpreted (Telemetry: Sinus rhythm, PVCs, brief run of PSVT.)
Echo: Other (Ordered)
Labs: Labs Reviewed by me
--- NOTE | 2025-07-04 09:47 | PTCARENOTE ---
Received pt from assembler 1st shift. Pt in 4-point soft restraints from assembler 1st shift. BL LE soft restraints removed at 0830. Pt remained calm and cooperative. BL UE soft restraints removed at 0930. Skin assessed and no injuries present. Daughter at bedside.
[2025-07-04] MEDS: NOVOLOG FLEXPEN-LOW RESISTANCE 1 UNITS SC ×2 (09:50→13:40)
--- NOTE | 2025-07-04 10:55 | CM ---
CM following re: discharge planning.
Reviewed pt's chart, met with pt and pt's daughter Susanne at bedside.
PT and OT evaluations noted - acute rehab level of carte recommended. Both pt and his daughter are aware, expressed dual opinion regarding level of care. Pt's daughter stated she is physical therapist and she feels that her father can continue
outpatient therapy at [facility]. At the same time she feels that her father will be benefitted from [facility] acute rehab. After back and fourth discussion both pt and her daughter decided: plan A: [facility] acute rehab if accepted and approved by insurance. Plan
B: [facility] outpatient rehab. Both pt and his daughter strongly declined SNF level of care.
A referral to [facility] acute rehab made.
PM&R consult requested.
D/C plan: Plan A: [facility] acute rehab if accepted and approved by insurance. Plan B: [facility] outpatient rehab.
CM will follow with discharge plan updates as hospitalization progresses.
[2025-07-04 11:25] VITALS: BP 139/68
[2025-07-04 11:36] LABS: Glucose - Point of Care 169 mg/dl (70-99)
[2025-07-04 12:22] LABS: ALT (SGPT) 31 U/L (0-50); AST (SGOT) 30 U/L (17-59); Albumin 4.1 g/dl (3.5-5.0); Alkaline Phosphatase 65 U/L (38-126); Blood Urea Nitrogen 18 mg/dl (9-20); Calcium 9.0 mg/dl (8.4-10.2); Carbon Dioxide 26 mmol/L (22-30); Chloride 105 mmol/L (98-107); Estimated Creatinine Clearance 86 ml/min; Glucose 194 mg/dl (70-99); Potassium 4.4 mmol/L (3.5-5.1); Sodium 136 mmol/L (135-145); Total Protein 6.8 g/dl (6.3-8.2); eGFR > 60.00
--- NOTE | 2025-07-04 12:57 | EEG.RPT ---
Electroencephalogram Report
Recording
Date of EE07/04/25
Type of EEG: Routine
Length of EEG recordin mins
Done with Video Recording: Yes
Patient Status: Inpatient
Recording Conditions: Awake
Hyperventilation Performed: No
Photic Stimulation Performed: Yes
Report
Clinical Background:�He is an 84 year old man with h/o right temporoparietal stroke presenting with simple partial seizure, simple visual hallucination, dense left hemiparesis and neglect, and left gaze deviation.
Introduction: A routine bedside EEG was done using [employer] 10-20 electrode placement protocol.
Background: In the most alert state, the PDR is 6-7 Hz in frequency with normal amplitude. It is better seen in the left hemisphere. There is spontaneous variability and reactivity.�
Sleep: No sleep is seen.�
Focal/epileptiform: Occasional F8/T4 sharp waves. Abundant focal slowing F8, T4, T6. No clinical or electrographic seizures occurred during this recording.
Photic stimulation: resulted in normal driving response. There was no photo myogenic or photoparoxysmal response.�
Impression: Normal EEG
[2025-07-04 13:21] LABS: Hematocrit 43.1 % (39.0-52.0); Hemoglobin 14.4 g/dL (13.0-18.0); Mean Corp Hgb Conc. 33.4 g/dL (33.0-37.0); Mean Corpuscular Volume 95.1 fL (80.0-94.0); Platelet Count 131 10^3/uL (130-400); Red Cell Dist. Width 12.3 % (11.5-14.5)
[2025-07-04 13:48] VITALS: BP 147/74; PULSE 60
[2025-07-04 13:53] VITALS: BP 147/74; PULSE 66
[2025-07-04] MEDS: ZONEGRAN 600 MG PO (15:19)
[2025-07-04 15:50] VITALS: BP 146/63
--- NOTE | 2025-07-04 17:13 | W.DCSUMMARY ---
Discharge Summary
Discharge Data
Date of Admission: 07/02/25
Date of Discharge: 07/04/25
Total time spent discharging patient (in min): 37
-
Pending Results: No
Hospital Course
84-year-old male with past medical history of prior CVA in 2023, CAD, diabetes, hypercholesteremia, GERD, hypertension, BPH and arthritis, presented with sudden onset of disequilibrium and bumping into things that started on the day of presentation.
He also had kaleidoscope-like images. Neurology was consulted; they looked at the CT perfusion scan and determined that the penumbra was not large enough to warrant benefit with TNK versus risk of bleeding. Aspirin and Plavix were given. Initially
given concern for embolic stroke, cardiology was consulted, they had patient's loop recorder interrogated -- and this showed no atrial fibrillation. Later it was determined that patient's presentation was most likely seizures so patient was started
on Keppra. However, patient had agitation several hours overnight after the Keppra was started, therefore the Keppra was switched to Zonisamide -- a higher loading dose of Zonisamide was given as it was thought patient had a brief seizure (patient
had very bizarre episode when trying to eat lunch around 2 PM on 07/04/25, according to the daughter, patient 'forgot' how to eat the sandwich and couldn't see the sandwich) on the day of discharge. I discussed case with both neurology and
cardiology and since it was determined that Transient Ischemic Attack and Stroke did not take place, patient did not need Plavix. Patient's echocardiogram came back okay and he was stable for discharge with close outpatient follow-up. Case was
discussed with neurology shortly before discharge and neurology confirmed that patient could be discharged home. Patient would need to do outpatient therapy with [facility].
Discharge Plan
-
Patient Disposition: Home (Routine Discharge)
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
History of Stroke
CAD with history of CABG
History Bio AVR valve replacement
Hypertension
Diabetes Mellitus
Subconjunctival hemorrhage of left eye
Incidentally noted 3 mm solid nodule within the posterior right upper lobe which is nonspecific. A follow-up CT chest in 12 months may be considered. The patient is considered high risk.
Coronary Artery Disease with history of CABG
Essential hypertension
Type 2 Diabetes Mellitus
Hypercholesteremia
GERD
BPH
Arthritis

CT Head and Neck (as per radiologist's report):
'FINDINGS:
PRECONTRAST HEAD CT
No evidence of intracranial hemorrhage, loss of distinction between alvarado and white matter, mass, significant mass effect, or abnormal extra-axial collection. Patent basal cisterns. Right temporoparietal encephalomalacia. Small focus of subtle
malacia within the left superior parietal lobe. Additional mild global parenchymal volume loss. Mild scattered periventricular and subcortical white matter hypointensities which are nonspecific however likely sequelae of chronic mild small vessel
ischemic disease.
Normal ventricular size.
Normal density of the dural venous sinuses.
No acute bony abnormality.
Predominantly clear mastoid air cells. Mild mucosal thickening of the bilateral maxillary sinuses. Unremarkable visualized orbits.
NECK CTA
Three-vessel aortic arch. Mild atherosclerotic calcifications of the aortic arch No significant stenosis of the brachiocephalic, bilateral common carotid, bilateral subclavian, and bilateral vertebral arteries origins. Changes of prior CABG.
Patent bilateral common carotid arteries without significant stenosis. Mild atherosclerotic calcifications.
Patent right carotid bifurcation and right internal carotid artery. Mild atherosclerotic plaque of the carotid bifurcation/proximal ICA with less than 30% stenosis by NASA criteria.
Patent left carotid bifurcation and left internal carotid artery. Mild atherosclerotic plaque of the carotid bifurcation/proximal ICA without significant stenosis.
Patent bilateral vertebral arteries without significant stenosis. Codominant vertebral arteries.
Unremarkable visualized neck soft tissues.
No focal airspace disease. There is a 3 mm solid nodule in the subpleural posterior right upper lobe (series [id number] image [id number]).
Multilevel mild/moderate degenerative changes of the cervical spine without evidence of aggressive osseous lesion. Median sternotomy wires present.
HEAD CTA
Patent bilateral petrous, cavernous, and supraclinoid internal carotid arteries (ICAs) segments without significant stenosis. Mild atherosclerotic calcifications
Patent bilateral anterior and middle cerebral arteries.
Patent vertebral, basilar, and posterior cerebral arteries.
No saccular aneurysm.
IMPRESSION:
CT Brain: No acute intracranial process. Specifically, no evidence of acute hemorrhage. Encephalomalacia within the right temporoparietal region. There is a small hypodensity within the superior left parietal lobe favored to represent a chronic
infarction.
CTA Head: No significant arterial stenosis. No aneurysm.
CTA Neck: No significant arterial stenosis. Mild atherosclerotic plaque of the carotid bifurcations with resultant less than 30% stenosis by NASA criteria.
Incidentally noted 3 mm solid nodule within the posterior right upper lobe which is nonspecific. A follow-up CT chest in 12 months may be considered. The patient is considered high risk.
The [facility] Pulmonary Nodule Advisory Board will be notified.'

CT Brain Perfusion (as per radiologist's report):
'TECHNIQUE: A CT brain perfusion examination was performed with intravenous contrast. Automatic exposure control radiation dose reduction technology was utilized.
Quantitative and qualitative perfusion maps were produced using RAPID software and are available for review in the [employer] PACS.
CBF <30% Volume: 14 cc (estimate of ischemic core)
Tmax >6 second Volume: 20 cc (critically hypoperfused tissue)
CBF/Tmax Mismatch Volume: 6 cc (ischemic penumbra)
CBF/Tmax Mismatch Ratio: 1.4
Hypoperfusion Index (Tmax >10s/Tmax >6s): 0 (predicts rate of collateral flow, infarct growth, and clinical outcome)
CBF <20% Volume: 0 cc (for patient's who arrived to the hospital within 60 minutes of symptom onset)
Cerebral blood flow decrease and Tmax prolongation are in the region of encephalomalacia involving the right posterior temporal, occipital, and inferior parietal lobes.
Of note, perfusion examination was performed slightly less than [address] performance of [address] angiography of the head and neck. There are reports in the literature of previous intravenous contrast administration making the results of subsequent CT
perfusion examination inaccurate.'

Echocardiogram Results (as per program director air talent's report):
'SUMMARY
1. Normal biventricular size and systolic function. Mild concentric LVH.
2. Bioprosthetic aortic valve without stenosis (mean 11 mmHg) and mild to moderate aortic regurgitation.
3. Moderate left atrial enlargement.
4. Mild mitral regurgitation.
5. No prior study for comparison.'
Condition: Fair
Diet: Low Fat, Low Cholesterol, Low Sodium and Diabetic, Carb Controlled
Activity: With assistance
Driving Restrictions: No driving
Blood Work: CBC, CMP and Magnesium in 1 to 3 days with your primary care provider's office.
Other Services: PT, OT and ST
Activity Restrictions/Additional Instructions:
Prescriptions for walker, physical therapy, occupational therapy, and speech therapy have been provided on discharge.
If symptoms return, or any new symptoms arise, please return to the emergency room right away for evaluation.
Instructions: Zonisamide
Referrals:
Pavan Handley MD [Active, Pulmonary Medicine] - in three to four weeks
Referral Note: Incidental pulmonary nodule on hospital CTA imaging
Jeremiah Lee MD [Family Provider, Internal Medicine] - in less than 1 week
Referral Note: Hospitalization Follow-Up for Seizures
Additional Discharge Medication Instructions: Zonisamide is a new medication.
Prescriptions:
New
zonisamide 100 mg Capsule
300 mg PO DAILY Qty: 90 1RF
Continued
lansoprazole 15 mg Capsule,Delayed Release(Dr/Ec)
15 mg PO DAILY
docusate sodium 100 MG capsule
100 mg PO DAILY
losartan 50 mg Tablet
50 mg PO DAILY
atorvastatin [Lipitor] 80 mg Tablet
80 mg PO HS
therapeutic multivitamin Tablet
1 tab PO DAILY
aspirin 81 mg Tablet,Delayed Release (Dr/Ec)
81 mg PO DAILY
docusate sodium [Colace] 100 mg Capsule
200 mg PO HS
fluticasone propionate 50 mcg/actuation [place],Suspension
1 spray INTRANASAL HS
finasteride 5 mg Tablet
5 mg PO HS
Januvia 100 mg Tablet
100 mg PO DAILY
Jardiance 10 mg Tablet
10 mg PO DAILY
metoprolol tartrate 50 mg Tablet
25 mg PO BID
Discharge Orders:
Discharge Patient (As Directed); Ordered 07/04/25
Ordered By: Ramon Posadas
Discharge Date and Time
Discharge Date/Time: 07/04/25 18:32
Print Language: PAP[place]
[2025-07-04 17:41] LABS: Glucose - Point of Care 209 mg/dl (70-99)
--- NOTE | 2025-07-04 17:41 | PTCARENOTE ---
Pt. with no urine output since 11:30 AM today. Bladder scanned this patient for 280, not enough urine to straight cath at this time. Asked pt. if she has any urgency or feeling like she has to urinate and she said 'no'.
[2025-07-04] MEDS: NOVOLOG FLEXPEN-LOW RESISTANCE 2 UNITS SC (17:53)
[2025-07-04 18:18] VITALS: BP 151/69
--- NOTE | 2025-07-04 20:22 | W.PN.NEURO.1 ---
Today's Communication / Plan
-
EEG right temporal sharps, focal slow
stop keppra, load zonisamide 600 today then 300 BID
Neuro Assessment/Plan
Assessment
head CT imgs rev'd, right temporoparietal encephalomalacia
CTA no LVO
CT perfusion core 14 cc, penumbra 6 cc near his prior stroke as read by prashanth RUDD, and my review of imaging agrees with this assessment.
EEG F8/T4 sharps and right focal slow
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 began with simple visual hallucinations then profound left sided weakness and neglect. the gaze deviation to the left (away from lesion) can only be seen with a
seizure, because a stroke or post ictal would cause gaze deviation TOWARD the lesion.
as I think this is a seizure, I'm not convinced that the penumbra was ever real.
symptoms were profound and lasted many hours, and I believe he is at >50% risk for further seizures,
suspect agitation 2/2 Keppra given lack of sundowning hx, will dc keppra and rx zonisamide 600 today then 300 daily, no h/o sulfa allergy, glaucoma, or kidney stones.
sammich ideomotor apraxia suspect sz symptom though usually it is a left parietal symptom and not right parietal
d/c home and f/u neuro [facility] refill sz meds
Subjective/Objective
Subjective Data
Date of Service: July 04, 2025
last night he was very agitated/violent. this morning back to normal. denies prior history of sundowing
this afternoon couldnt figure out how to eat sammich x1 minute improved over 3-4 mins
Objective Data
Vital Signs
Temp Pulse Resp BP Pulse Ox
36.7 C 68 17 151/69 97
07/04/25 18:18 07/04/25 18:18 07/04/25 18:18 07/04/25 18:18 07/04/25 18:18
Lab Results
07/04/25 11:53
07/04/25 11:53
PT 13.9 Sec (11.4-14.6) 07/02/25 18:40
INR 1.04 07/02/25 18:40
APTT 30.7 Sec (23.4-35.0) 07/02/25 18:40
Sodium 136 mmol/L (135-145) 07/04/25 11:53
Potassium 4.4 mmol/L (3.5-5.1) 07/04/25 11:53
BUN 18 mg/dl (9-20) 07/04/25 11:53
Glucose 194 mg/dl (70-99) H 07/04/25 11:53
Calcium 9.0 mg/dl (8.4-10.2) 07/04/25 11:53
LDL Cholesterol, Calc 66 mg/dl 07/03/25 07:25
Patient Allergies
HIEU Inhibitors (Hieu Inhibitors) Allergy (Verified 07/02/25 18:30)
cough
metformin Allergy (Verified 07/02/25 18:30)
gas
--- NOTE | 2025-07-05 08:12 | PN.CDI ---
CDI
- -
CDI:
Physician Documentation Request
Admit Date: 07/03/25 18:01
Dear Doctor Cuauhtemoc,
Clinical Indicators:
Patient admitted with partial seizures.
07/04 (09:47) RN note, 'Pt in 4-point soft restraints from hourly shift manager. BL LE soft restraints removed at 0830. Pt remained calm and cooperative. BL UE soft restraints removed at 0930'
07/04 Neurology PN, 'suspect agitation 2/2 Keppra given lack of sundowning hx...last night he was very agitated/violent. this morning back to normal. denies prior history of sundowing'
Based on the above, could you clarify in the Progress Notes and Discharge Summary which, if any of the following, is the most likely etiology of the confusion/altered mental status.
Toxic Encephalopathy due to Keppra
Acute Delirium due to Keppra
Agitation only
Other
Use of terms such as suspected, likely, concern for, or probable (associated with a specific diagnosis that is being evaluated, monitored, or treated as if it exists) are acceptable and can be coded in the inpatient setting, when documented at the
time of discharge.
Thank you,
ARMIDA Sinclair RN
CDI Specialist
available via tiger text
Please use your independent medical judgment in providing your response.
== END 2025-07-04 18:32 | disposition home or self-care (01) | DRG 101 ==
LOC: 3 WEST ACU 18:01
PROVIDERS: ADMITTING PHYSICIAN Hospitalist; ATTENDING PHYSICIAN Hospitalist; CONSULT PHYSICIAN Internal Medicine Cardiovascular Disease; CONSULT PHYSICIAN Psychiatry & Neurology Clinical Neurophysiology; EMERGENCY PHYSICIAN Student in an Organized Health Care Education/Training Program; FAMILY PHYSICIAN Internal Medicine
DX: G40.109 Localization-related (focal) (partial) symptomatic epilepsy and epileptic syndromes with simple partial seizures, not intractable, without status epilepticus (principal); R41.4 Neurologic neglect syndrome; I10 Essential (primary) hypertension; H51.0 Palsy (spasm) of conjugate gaze; R27.0 Ataxia, unspecified; I25.10 Atherosclerotic heart disease of native coronary artery without angina pectoris; E11.9 Type 2 diabetes mellitus without complications; E78.00 Pure hypercholesterolemia, unspecified; K21.9 Gastro-esophageal reflux disease without esophagitis; N40.0 Benign prostatic hyperplasia without lower urinary tract symptoms; M19.90 Unspecified osteoarthritis, unspecified site; H11.32 Conjunctival hemorrhage, left eye; R44.1 Visual hallucinations; R91.1 Solitary pulmonary nodule; G93.89 Other specified disorders of brain; I48.91 Unspecified atrial fibrillation; I45.10 Unspecified right bundle-branch block; R41.0 Disorientation, unspecified; R45.1 Restlessness and agitation; T42.6X5A Adverse effect of other antiepileptic and sedative-hypnotic drugs, initial encounter; Y92.239 Unspecified place in hospital as the place of occurrence of the external cause; Z87.891 Personal history of nicotine dependence; Z95.1 Presence of aortocoronary bypass graft; Z79.82 Long term (current) use of aspirin; Z88.8 Allergy status to other drugs, medicaments and biological substances; Z86.73 Personal history of transient ischemic attack (TIA), and cerebral infarction without residual deficits
CPT/HCPCS: 0042T; 70496; 70498; 80053; 80061; 82962; 83036; 84484; 85025; 85027; 85610; 85730; 93005; 93306; 95816; 96374; 97116; 97163; 97167; 97530; 97535; 99285; Q9967